=== PATIENT | male | born 1950 | race Caucasian/White ===

== ENCOUNTER 2018-08-06 13:49 | Emergency (ER) | payer MEDICARE ==
[~2018-08-06] VITALS: Ht 182.9 cm; Wt 117.9 kg
[2018-08-06] MEDS ORDERED: HYDROcodone/APAP 5/325MG 1 TAB TABLET PO ONE (16:30)
--- NOTE | 2018-08-06 16:38 | PHYS DOC ---
Past Medical History Past Medical History: Anxiety, Depression Additional Past Medical Histor: PTSD, ENLARGED PROSTATE Past Surgical History: Cholecystectomy Alcohol Use: None Drug Use: None Adult General Chief Complaint Chief Complaint: LOWER EXT PAIN HPI HPI Patient is a 68 year old male who presents to the emergency room with complaints of pain in his right leg that increases with movement and shoots up towards his buttock for the last 2 weeks. Patient states he fell 3 times after slipping on ice on Monday and has had increased pain in the lower portion of his right femur since the fall. Patient states he was seen [facility] earlier today and they x-rayed his low back. The [facility] told him that there is nothing wrong with his back and he prescribed him some vital appearing gel. Patient states that his hip and his leg were not x-rayed. He denies any numbness, tingling, or weakness of the affected extremity. He denies any swelling or erythema. Currently he reports the pain as a 6 out of 10 on the pain scale. He states that nothing alleviates the pain however movement and weightbearing aggravate the pain. Review of Systems Review of Systems Constitutional: Denies fever or chills [] Cardiovascular: No additional information not addressed in HPI [] GI: Denies abdominal pain, saddle anesthesia, nausea, vomiting, or diarrhea [] : Denies dysuria or incontinence Musculoskeletal: Denies back pain, history of present illness Integument: Denies rash or skin lesions [] Neurologic: Denies headache, focal weakness or sensory changes [] Complete systems were reviewed and found to be within normal limits, except as documented in this note. Current Medications Current Medications Current Medications Medications (Trade) Dose Ordered Sig/[facility] Start Time Stop Time Status Last Admin Dose Admin Acetaminophen/ Hydrocodone Bitart (Lortab 5/325) 1 tab 1X ONCE 08/06/18 16:30 08/06/18 16:31 DC 08/06/18 16:32 1 TAB Allergies Allergies Allergies Coded Allergies Type Severity Reaction Last Updated Verified Penicillins Allergy Mild RASH 03/02/16 Yes Physical Exam Physical Exam Constitutional: Well developed, well nourished, no acute distress, non-toxic appearance. [] HENT: Normocephalic, atraumatic, bilateral external ears normal, nose normal. [ ] Eyes: PERRLA, EOMI, conjunctiva normal, no discharge. [] Neck: Normal range of motion, supple, no stridor. [] Cardiovascular:Heart rate regular rhythm, no murmur [] Lungs & Thorax: Bilateral breath sounds clear to auscultation [] Skin: Warm, dry, no erythema, no rash. [] Back: No tenderness Extremities: right lateral lower femur TTP no deformity or crepitus; no cyanosis , no clubbing, increased pain with ROM including straight leg lift of RLE, no edema [] Neurologic: Alert and oriented X 3, normal motor function, normal sensory function, no focal deficits noted. [] Psychologic: Affect normal, judgement normal, mood normal. [] Current Patient Data Vital Signs Vital Signs Date Time Temp Pulse Resp B/P (MAP) Pulse Ox O2 Delivery O2 Flow Rate FiO2 08/06/18 17:30 70 18 166/77 (106) 100 Room Air 08/06/18 15:15 98.6 98.6 EKG EKG [] Radiology/Procedures Radiology/Procedures PROCEDURE: HIP RIGHT 2V WITH PELVIS EXAM: Pelvis and right hip, 3 views; right femur, 2 views. HISTORY: Pain. Fall. COMPARISON: None. FINDINGS: A frontal view the pelvis and frontal and frog-leg views of the right hip and frontal and lateral views of the right femur are obtained. There is no fracture, dislocation or subluxation. There are radiation seed implants within the prostate bed. IMPRESSION: No acute osseous finding. PROCEDURE: RIGHT FEMUR XRAY EXAM: Pelvis and right hip, 3 views; right femur, 2 views. HISTORY: Pain. Fall. COMPARISON: None. FINDINGS: A frontal view the pelvis and frontal and frog-leg views of the right hip and frontal and lateral views of the right femur are obtained. There is no fracture, dislocation or subluxation. There are radiation seed implants within the prostate bed. IMPRESSION: No acute osseous finding. [] Course & Med Decision Making Course & Med Decision Making Pertinent Labs and Imaging studies reviewed. (See chart for details) Dx: R leg pain Xray negative for acute findings. Pt reports some relief with lortab. Advised pt that his sx are similar to sciatic nerve pain. Xrays were negative. Prescription for orphenadrine bid, continue taking ibuprofen 800 TID as reported, follow up with Dr. Heredia if sx persist and for further evaluation Patient verbalized an understanding of home care, medications, follow-up, and return to ED instructions and was in agreement with the plan of care. [] Dragon Disclaimer Dragon Disclaimer This electronic medical record was generated, in whole or in part, using a voice recognition dictation system. Departure Departure Impression: Primary Impression: Right leg pain Additional Impression: Pain in lateral right lower extremity Disposition: HOME, SELF-CARE Condition: STABLE Referrals: UNKNOWN PCP NAME (PCP) Patient Instructions: Hip Pain Additional Instructions: Fill prescription and use as directed for pain. Follow up with your primary care doctor or Dr. Heredia for further evaluation and treatment. Scripts Orphenadrine Citrate (ORPHENADRINE CITRATE) 100 Mg Tablet.er 1 TAB PO BID PRN for PAIN for 10 Days, #20 TAB 0 Refills Prov: RAHEEM PRITCHETT APRN 08/06/18 Problem Qualifiers RAHEEM PRITCHETT APRN Aug 06, 2018 16:38
[2018-08-06 17:30] VITALS: BP 166/77
--- NOTE | 2018-08-06 17:47 | RAD ---
EXAM: Pelvis and right hip, 3 views; right femur, 2 views. HISTORY: Pain. Fall. COMPARISON: None. FINDINGS: A frontal view the pelvis and frontal and frog-leg views of the right hip and frontal and lateral views of the right femur are obtained. There is no fracture, dislocation or subluxation. There are radiation seed implants within the prostate bed. IMPRESSION: No acute osseous finding. Electronically signed by: Vilma Johnson MD (08/06/2018 5:43 PM) [id number]
--- NOTE | 2018-08-06 17:48 | RAD ---
EXAM: Pelvis and right hip, 3 views; right femur, 2 views. HISTORY: Pain. Fall. COMPARISON: None. FINDINGS: A frontal view the pelvis and frontal and frog-leg views of the right hip and frontal and lateral views of the right femur are obtained. There is no fracture, dislocation or subluxation. There are radiation seed implants within the prostate bed. IMPRESSION: No acute osseous finding. Electronically signed by: Vilma Johnson MD (08/06/2018 5:43 PM) [id number]
[2018-08-06] MEDS ORDERED: ORPH100T PO (17:56)
== END 2018-08-06 18:12 | disposition home or self-care (01) ==
LOC: ER 13:49
DX: M79.604 Pain in right leg (principal); M25.551 Pain in right hip; F41.9 Anxiety disorder, unspecified; F32.9 Major depressive disorder, single episode, unspecified; Z90.49 Acquired absence of other specified parts of digestive tract; Z88.0 Allergy status to penicillin; W00.0XXA Fall on same level due to ice and snow, initial encounter; Y93.89 Activity, other specified; Y92.89 Other specified places as the place of occurrence of the external cause; Y99.8 Other external cause status
CPT/HCPCS: 73502; 73552; 99283

== ENCOUNTER → 2019-02-12 | Outpatient (CLI) | payer OTHER ==
[~2019-02-12] MED LIST: BARIUM SULFATE 40% (APPLE) 148 GM PWD. PO ONE; ORPH100T PO
--- NOTE | 2019-02-12 14:10 | RAD ---
Indication: Dysphagia TECHNIQUE: Fluoroscopy guided mediastinal study with total fluoroscopy time of 1.2 seconds and 1 image. COMPARISON: None FINDINGS: Thin liquid, pudding, mixed solid and liquid and solid food consistencies were tested. No Aspiration or penetration. IMPRESSION: As above. Please see detailed notes by speech pathologist in patient's chart for full information. Electronically signed by: Vaughn Apodaca DO (02/12/2019 2:07 PM) [facility]
== END | disposition home or self-care (01) ==
LOC: RAD 12:09
PROVIDERS: ATTEND Nurse Practitioner Family
DX: R13.10 Dysphagia, unspecified (principal)
CPT/HCPCS: 74230; 92611

== ENCOUNTER 2020-11-10 21:11 | Emergency (ER) | payer MEDICARE, OTHER ==
[~2020-11-10] VITALS: Ht 182.9 cm; Wt 120.4 kg
[~2020-11-10 21:11] MED LIST changes: +ACET500T68 PO; +ALLO300T PO; -BARIUM SULFATE 40% (APPLE) 148 GM PWD. PO ONE; +BUSP10TA PO; +CYAN100031 PO; +DOCU-153 PO; +DULO60CA6 PO; +ERGO500027 PO; +FERR325T14 PO; +GABA-585 PO; +GABA-689 PO; +LIPITOR80 MG PO; +METO25TA4 PO; +NITR0.4T24 SL; +OMEG1CAP27 PO; +OMEP20CA16 PO; +OXYB15TA18 PO; +PRAZ5CAP2 PO; +PROP40TA PO; +ROPI3TAB4 PO; +VIT1TABL8 PO
[2020-11-10 21:40] VITALS: BP 153/76
--- NOTE | 2020-11-10 22:13 | PHYS DOC ---
Past Medical History Past Medical History: A-Fib, Anxiety, Depression, GERD, High Cholesterol, Hypertension Additional Past Medical Histor: PTSD, ENLARGED PROSTATE,X 2 HEAD BLEEDS,GOUT Past Surgical History: Cholecystectomy, Knee Replacement, Pacemaker, Other Additional Past Surgical Histo: AICD Smoking Status: Never Smoker Alcohol Use: Occasionally Drug Use: None General Adult EDM: Chief Complaint: LACERATION/AVULSION HPI: HPI: Patient is a 70-year-old male presenting for left thumb injury. Was doing home [employer] project and operating a table saw when he accidentally cut the distal tip of his left finger approximately 6 hours prior to arrival. He applied direct pressure and put a bandage over it and proceeded to go about his day. 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 He has no changes in motor or sensory function, remains neurovascularly intact. There is concern for potential bone involvement of distal left thumb. His pain is well controlled at present. He is not on any blood thinners Review of Systems: Review of Systems: Fourteen body systems of review of systems have been reviewed. See HPI for pertinent positives and negative responses, other humphrey all other systems are negative, non-pertinent or non-contributory Heart Score: C/O Chest Pain: No Risk Factors: Risk Factors: DM, Current or recent (<one month) smoker, HTN, HLP, family history of CAD, obesity. Risk Scores: Score 0 - 3: 2.5% MACE over next 6 weeks - Discharge Home Score 4 - 6: 20.3% MACE over next 6 weeks - Admit for Clinical Observation Score 7 - 10: 72.7% MACE over next 6 weeks - Early Invasive Strategies Allergies: Allergies: Allergies Coded Allergies Type Severity Reaction Last Updated Verified Penicillins Allergy Intermediate RASH 10/01/20 Yes Physical Exam: PE: Constitutional: Well developed, well nourished, no acute distress, non-toxic appearance. HENT: Normocephalic, atraumatic, bilateral external ears normal, oropharynx moist, no oral exudates, nose normal. Eyes: PERRLA, EOMI, conjunctiva normal, no discharge. Neck: Normal range of motion, no tenderness, supple, no stridor. Cardiovascular: Heart rate regular per monitor Lungs & Thorax: No respiratory distress or accessory muscle use, bilateral chest rise Abdomen: Abdomen soft, non-tender, bowel sounds present in all quadrants, no guarding or rebound, nonacute abdomen. Skin: Warm, dry, no erythema, no rash. Back: No tenderness, no CVA tenderness. Extremities: Tenderness present to left distal tip of the thumb with linear laceration present involving distal right-hand tip of nailbed and concern for bony involvement on initial evaluation with cap refill less than 3 seconds in good radial pulse, no cyanosis, no clubbing, ROM intact, no edema. Neurologic: Alert and oriented X 3, normal motor & sensory function, no focal deficits noted. Left upper extremity neurovascularly intact, median, ulnar and radial nerves all intact Psychologic: Affect normal, judgement normal, mood normal. Current Patient Data: Vital Signs: Vital Signs Date Time Temp Pulse Resp B/P (MAP) Pulse Ox O2 Delivery O2 Flow Rate FiO2 11/10/20 21:40 98.5 76 20 153/76 (101) 96 Room Air 98.5 EKG: EKG: [] Radiology/Procedures: Radiology/Procedures: Exam: Left hand 3 views INDICATION: Distal thumb injury TECHNIQUE: Frontal, lateral and oblique views of the left hand Comparisons: None FINDINGS: There is a fracture to the distal tuft of the first digit. Bone mineralization is normal. Joint spaces are well-maintained. Joint spaces are well-maintained. IMPRESSION: Fractures of the distal tuft of the first digit. Electronically signed by: Kassie Hebert MD (11/10/2020 11:02 PM) [facility] Course & Med Decision Making: Course & Med Decision Making VSS> HPI and PE non-conconcerning for emergent/surgical issues. Radiographs obtained and finding of open tuft fracture discussed, tetanus updated, Keflex started for infection prevention. Wound thoroughly irrigated with NS and explored. I reviewed complicated nature of cut from saw blade involving distal tip of finger and nailbed matrix. 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 I advised close PCP follow-up and recommendations for outpatient hand specialist follow-up for evaluation and management as indicated I discussed the risks vs benefits of suture repair and potential role of transfer for immediate hand specialist consultation, patient with full capacity deferred specialist visit to outpatient setting. States he does not care about cosmetic appearance and agrees attempted suture repair would result in more risks than benefits at present. He is amenable to proposed plan of care Strict return precautions discussed with good understanding, all questions and concerns addressed prior to departure Maricel Disclaimer: Maricel Disclaimer: This electronic medical record was generated, in whole or in part, using a voice recognition dictation system. Departure Departure Impression: Primary Impression: Open fracture of tuft of distal phalanx of right thumb Disposition: HOME / SELF CARE / HOMELESS Condition: STABLE Referrals: YISSEL CHAKRABORTY (PCP) Additional Instructions: As discussed prior to ER departure, you were diagnosed with a fracture of the distal tuft of the first digit. There is need for outpatient hand orthopedic surgeon referral, we recommend him typically refer individuals to [facility]. Your is knowledgeable about their orthopedic hand specialist and I would defer to her to navigate your outpatient referral process through your primary care physician. If possible, it is advised that you see them within upcoming 72 yoel rs for repeat evaluation and discussion on further management of your left thumb. You were prescribed antibiotics to prevent secondary infection due to concern that this is an open fracture and high risk for infection. You tolerated the x1 dose of cephalexin antibiotic that was administered while in the ER. Please fill the prescription given and complete this in its entirety based on prescription bottle instructions. You have any questions or concerns that arise prior to outpatient follow-up please do not hesitate to come back for repeat evaluation. It was a pleasure to take care of you and I wish you the best going forward Scripts Cephalexin (CEPHALEXIN) 500 Mg Tablet 2 TAB PO BID for 7 Days, #28 TAB Prov: MINESH GARZON DO 11/11/20 MINESH GARZON DO November 10, 2020 22:13
--- NOTE | 2020-11-10 23:05 | RAD ---
Exam: Left hand 3 views INDICATION: Distal thumb injury TECHNIQUE: Frontal, lateral and oblique views of the left hand Comparisons: None FINDINGS: There is a fracture to the distal tuft of the first digit. Bone mineralization is normal. Joint space s are well-maintained. Joint spaces are well-maintained. IMPRESSION: Fractures of the distal tuft of the first digit. Electronically signed by: Kassie Hebert MD (11/10/2020 11:02 PM) [facility]
[2020-11-11] MEDS ORDERED: LIDOCAINE 2% Multi-Dose 20 ML VIAL. ONE (00:25)
[2020-11-11] MEDS ORDERED: HYDROcodone/APAP 7.5/325MG 1 TAB TABLET ONE (00:26)
[2020-11-11] MEDS: HYDROcodone/APAP 7.5/325MG 1 TAB TABLET PO ONE (00:30)
[2020-11-11] MEDS ORDERED: CEPH500T PO (02:03)
[2020-11-11] MEDS: CEPHALEXIN 250 MG CAPSULE. PO SCH (02:23)
[2020-11-11] MEDS ORDERED: DIPH,PERTUSS(ACELL),TET VAC/PF 0.5 ML SYRINGE. VAX IM ONE ×2 (02:27→02:45)
== END 2020-11-11 02:32 | disposition home or self-care (01) ==
LOC: ER 21:11
DX: S62.521B Displaced fracture of distal phalanx of right thumb, initial encounter for open fracture (principal); I48.91 Unspecified atrial fibrillation; E78.00 Pure hypercholesterolemia, unspecified; I10 Essential (primary) hypertension; F43.10 Post-traumatic stress disorder, unspecified; K21.9 Gastro-esophageal reflux disease without esophagitis; Z95.0 Presence of cardiac pacemaker; M10.9 Gout, unspecified; Z88.0 Allergy status to penicillin; Y28.8XXA Contact with other sharp object, undetermined intent, initial encounter; Y93.89 Activity, other specified; Y92.89 Other specified places as the place of occurrence of the external cause; Y99.8 Other external cause status
CPT/HCPCS: 73130; 99283

== ENCOUNTER 2021-04-06 11:26 | Inpatient (IN) | payer MEDICARE ==
[2021-04-06] VITALS (7 sets, daily range): BP systolic 117–171; BP diastolic 64–114
[~2021-04-06] VITALS: Ht 182.9 cm; Wt 121.6 kg
[~2021-04-06 11:26] MED LIST changes: +CEPH500T PO; +CLINDAMYCIN 900MG PREMIX 50 ML IV PRN; +DOCU-148 PO; -DOCU-153 PO; -DULO60CA6 PO; +DULO60CA7 PO; -ERGO500027 PO; +ERGO500089 PO; +HYDROmorphone 2 MG/ML VIAL IVP PRN; +PROCHLORPERAZINE 10 MG/2 ML VIAL. IVP PRN; +fentaNYL PF VIAL 100 MCG/2 ML VIAL IVP PRN
[2021-04-06] MEDS ORDERED: LIDOCAINE 2% PF 5 ML VIAL. ONE (11:51)
[2021-04-06] MEDS ORDERED: PROPOFOL 10 MG/ML (20ML) VIAL. IV ONE ×2 (11:51→15:18)
[2021-04-06] MEDS ORDERED: ROCURONIUM 50 MG/5 ML VIAL. ONE ×2 (11:51→14:21)
[2021-04-06] MEDS ORDERED: SEVOFLURANE 61 TO 120 MINUTES. IH ONE (11:51)
[2021-04-06] MEDS ORDERED: fentaNYL PF VIAL 100 MCG/2 ML VIAL ONE ×2 (11:52→16:41)
[2021-04-06] MEDS ORDERED: BUPIVACAINE-EPI 0.5%-1:200000 MPF 30 ML VIAL. ONE (12:04)
[2021-04-06] MEDS: IV RINGERS,LACTATED 1000ML 1,000 ML IV SCH ×2 (12:14→17:24)
[2021-04-06] MEDS ORDERED: CHLORHEXIDINE 0.12% 15 ML MOUTHWASH. ONE (13:34)
[2021-04-06] MEDS ORDERED: DEXAMETHASONE SOD PHOS 4 MG/ML VIAL ONE ×2 (13:56→16:03)
[2021-04-06] MEDS ORDERED: LIDOCAINE 1%/EPI 1:100,000 20 ML VIAL. ONE (14:15)
[2021-04-06] MEDS ORDERED: NEOSTIGMINE METHYLSULFATE 5 MG/5 ML SYRINGE. ONE (15:11)
[2021-04-06] MEDS ORDERED: GLYCOPYRROLATE 1 MG/5 ML VIAL. ONE (15:11)
[2021-04-06] MEDS ORDERED: NEOMY/BACITR/POLYMYXIN OINT PACKET. TP ONE ×3 (15:23→15:24)
[2021-04-06] MEDS ORDERED: ePHEDrine PF IN SALINE 50 MG/10 ML SYRINGE. IV ONE ×2 (15:34→15:35)
[2021-04-06] MEDS ORDERED: SEVOFLURANE > 120 MINUTES. IH ONE (15:35)
[2021-04-06] MEDS ORDERED: PHENYLEPHRINE in 0.9% NACL PF 1 MG/10 ML SYRINGE. IV ONE (15:35)
[2021-04-06] MEDS ORDERED: DEXAMETHASONE SOD PHOS 4 MG/ML VIAL IVP ONE ×2 (16:03)
--- NOTE | 2021-04-06 16:26 | PDOC4 ---
OPERATIVE NOTE Date: Date: Apr 06, 2021 Pre-Op Diagnosis: bilateral sublingual sialadenitis Post-Op Diagnosis: same Procedure Performed: excision of bilateral sublingual glands Surgeon: alyssa Anesthesia Type: hapgood Blood Loss: 50 Specimans Obtained: bilateral sublingual glands Findings: see dictation Complications: none noted Operative Note: see dictation CARDDESI DMD Apr 06, 2021 16:25
[2021-04-06] MEDS: fentaNYL PF VIAL 100 MCG/2 ML VIAL IVP PRN ×3 (17:10→21:28)
[2021-04-06] MEDS ORDERED: HYDROcodone/APAP 5/325MG 1 TAB TABLET PO PRN (17:45)
[2021-04-06] MEDS ORDERED: MORPHINE SULFATE 2 MG/ML INJ. ONE (17:49)
[2021-04-06] MEDS: MORPHINE SULFATE 2 MG/ML INJ. IVP PRN ×2 (17:53→18:16)
[2021-04-06] MEDS ORDERED: NITROGLYCERIN SUBLINGUAL 0.4 MG BOTTLE OF 25. SL PRN (18:30)
[2021-04-06] MEDS ORDERED: DOCUSATE SODIUM 100 MG CAPSULE. PO PRN (18:30)
[2021-04-06] MEDS ORDERED: ONDANSETRON PF 4 MG/2 ML VIAL. IVP PRN (18:30)
[2021-04-06] MEDS ORDERED: ALBUTEROL SULFATE 2.5 MG/3 ML NEBU. NEB PRN (18:30)
[2021-04-06] MEDS ORDERED: ACETAMINOPHEN 500 MG TABLET PO PRN (18:30)
--- NOTE | 2021-04-06 18:33 | PDOC1 ---
History and Physical Date of Admission Date of Admission DATE: 04/06/21 TIME: 18:31 Identification/Chief Complaint Chief Complaint Sialodenitis Source Source: Caregiver, Patient History of Present Illness History of Present Illness Mr Michel is a 70 year old male with history of anxiety, PTSD, depression, hypertension, high cholesterol, prostate cancer s/p brachytherapy who presents to outpatient surgery for sialodenitis after recent tooth extraction Seen post-operatively is somewhat hypoxic, concerning for overnight observation post-operatively. Tolerated procedure well. He had tooth extraction over 6 weeks ago and had some intense sublingual pain, was admitted to [facility] for IV antibiotics and steroids and has been on PO antibiotics, but symptoms returned and was admitted for for definitive surgical debridement. Past Medical History Cardiovascular: CAD, HTN, Syncope, Hyperlipidemia, Other Pulmonary: Other CENTRAL NERVOUS SYSTEM: Other GI: GERD, Other Heme/Onc: Anemia NOS Hepatobiliary: No pertinent hx Psych: Depression Musculoskeletal: Osteoarthritis Rheumatologic: Gout Infectious disease: No pertinent hx Renal/: Benign prostatic enlarg. Endocrine: No pertinent hx Past Surgical History Past Surgical History: Pacemaker, Total knee replacement, Other Family History Family History: Hypertension Social History Smoke: No ALCOHOL: none Drugs: None Current Problem List Problem List Problems Medical Problems: (1) Dental injury Status: Acute Current Medications Current Medications Current Medications Fentanyl Citrate (Fentanyl 2ml Vial) 25 mcg PRN Q5MIN PRN IVP MILD PAIN 1-3; Start 04/06/21 at 06:00; Stop 04/06/21 at 20:00 Fentanyl Citrate (Fentanyl 2ml Vial) 50 mcg PRN Q5MIN PRN IVP MODERATE PAIN 4-6 Last administered on 04/06/21at 17:10; Start 04/06/21 at 06:00; Stop 04/06/21 at 20:00 Morphine Sulfate (Morphine Sulfate) 1 mg PRN Q10MIN PRN IVP SEVERE PAIN 7-10 Last administered on 04/06/21at 18:16; Start 04/06/21 at 06:00; Stop 04/06/21 at 20:00 Ringer's Solution 1,000 ml @ 30 mls/hr Q24H IV Last administered on 04/06/21at 17:24; Start 04/06/21 at 06:00; Stop 04/06/21 at 17:59; Status DC Hydromorphone HCl (Dilaudid) 0.5 mg PRN Q10MIN PRN IVP SEVERE PAIN 7-10, 2nd CHOICE; Start 04/06/21 at 06:00; Stop 04/06/21 at 18:15; Status DC Prochlorperazine Edisylate (Compazine) 5 mg PACU PRN PRN IVP NAUSEA, MRX1; Start 04/06/21 at 06:00; Stop 04/06/21 at 20:00 Clindamycin Phosphate 50 ml @ 100 mls/hr 1X PREOP PRN IV PRIOR TO PROCEDURE; Start 04/06/21 at 06:00; Stop 04/06/21 at 18:00; Status DC Propofol (Diprivan) 200 mg STK-MED ONCE IV ; Start 04/06/21 at 11:51; Stop 04/06/21 at 11:52; Status DC Lidocaine HCl (Lidocaine Pf 2% Vial) 5 ml STK-MED ONCE .ROUTE ; Start 04/06/21 at 11:51; Stop 04/06/21 at 11:52; Status DC Sevoflurane (Ultane) 60 ml STK-MED ONCE IH ; Start 04/06/21 at 11:51; Stop 04/06/21 at 11:52; Status DC Rocuronium [employer] (Zemuron) 50 mg STK-MED ONCE .ROUTE ; Start 04/06/21 at 11:51; Stop 04/06/21 at 11:52; Status DC Fentanyl Citrate (Fentanyl 2ml Vial) 100 mcg STK-MED ONCE .ROUTE ; Start 04/06/21 at 11:52; Stop 04/06/21 at 11:52; Status DC Bupivacaine HCl/ Epinephrine Bitart (Sensorcain-Epi 0.5%-1:[id number] Mpf) 30 ml STK-MED ONCE .ROUTE Last administered on 04/06/21at 13:40; Start 04/06/21 at 12:04; Stop 04/06/21 at 12:05; Status DC Chlorhexidine Gluconate (Peridex) 15 ml STK-MED ONCE .ROUTE Last administered on 04/06/21at 13:40; Start 04/06/21 at 13:34; Stop 04/06/21 at 13:34; Status DC Dexamethasone Sodium Phosphate (Decadron) 4 mg STK-MED ONCE .ROUTE ; Start 04/06/21 at 13:56; Stop 04/06/21 at 13:56; Status DC Lidocaine/ Epinephrine (LIDOCAINE 1%-EPI 1:100,000 Multi-Dose) 20 ml STK-MED ONCE .ROUTE Last administered on 04/06/21at 14:25; Start 04/06/21 at 14:15; Stop 04/06/21 at 14:15; Status DC Rocuronium [employer] (Zemuron) 50 mg STK-MED ONCE .ROUTE ; Start 04/06/21 at 14:21; Stop 04/06/21 at 14:21; Status DC Neostigmine [employer] (Neostigmine Methylsulfate) 5 mg STK-MED ONCE .ROUTE ; Start 04/06/21 at 15:11; Stop 04/06/21 at 15:11; Status DC Glycopyrrolate (Robinul) 1 mg STK-MED ONCE .ROUTE ; Start 04/06/21 at 15:11; Stop 04/06/21 at 15:12; Status DC Propofol (Diprivan) 200 mg STK-MED ONCE IV ; Start 04/06/21 at 15:18; Stop 04/06/21 at 15:19; Status DC Neomycin/ Polymyxin/ Bacitracin (Triple Antibiotic Ointment) 1 pkt STK-MED ONCE TP Last administered on 04/06/21at 15:40; Start 04/06/21 at 15:23; Stop 04/06/21 at 15:24; Status DC Neomycin/ Polymyxin/ Bacitracin (Triple Antibiotic Ointment) 1 pkt STK-MED ONCE TP Last administered on 04/06/21at 15:40; Start 04/06/21 at 15:23; Stop 04/06/21 at 15:24; Status DC Neomycin/ Polymyxin/ Bacitracin (Triple Antibiotic Ointment) 1 pkt STK-MED ONCE TP ; Start 04/06/21 at 15:24; Stop 04/06/21 at 15:24; Status DC Ephedrine Sulfate (ePHEDrine PF IN SALINE SYRINGE) 50 mg STK-MED ONCE IV ; Start 04/06/21 at 15:34; Stop 04/06/21 at 15:34; Status DC Phenylephrine HCl (PHENYLEPHRINE in 0.9% NACL PF) 1 mg STK-MED ONCE IV ; Start 04/06/21 at 15:35; Stop 04/06/21 at 15:35; Status DC Ephedrine Sulfate (ePHEDrine PF IN SALINE SYRINGE) 50 mg STK-MED ONCE IV ; Start 04/06/21 at 15:35; Stop 04/06/21 at 15:35; Status DC Sevoflurane (Ultane) 90 ml STK-MED ONCE IH ; Start 04/06/21 at 15:35; Stop 04/06/21 at 15:35; Status DC Dexamethasone Sodium Phosphate (Decadron) 4 mg STK-MED ONCE .ROUTE ; Start 04/06/21 at 16:03; Stop 04/06/21 at 16:03; Status DC Dexamethasone Sodium Phosphate (Decadron) 4 mg STK-MED ONCE IVP Last administered on 04/06/21at 16:03; Start 04/06/21 at 16:03; Stop 04/06/21 at 16:11; Status DC Dexamethasone Sodium Phosphate (Decadron) 4 mg STK-MED ONCE IVP Last administered on 04/06/21at 16:03; Start 04/06/21 at 16:03; Stop 04/06/21 at 16:11; Status DC Fentanyl Citrate (Fentanyl 2ml Vial) 100 mcg STK-MED ONCE .ROUTE ; Start 04/06/21 at 16:41; Stop 04/06/21 at 16:41; Status DC Acetaminophen/ Hydrocodone Bitart (Lortab 5/325) 1 tab PRN Q4HRS PRN PO MILD PAIN 1-3; Start 04/06/21 at 17:45 Acetaminophen/ Hydrocodone Bitart (Lortab 5/325) 2 tab PRN Q4HRS PRN PO MODERATE PAIN, SEVERE PAIN; Start 04/06/21 at 17:45 Morphine Sulfate (Morphine Sulfate) 2 mg STK-MED ONCE .ROUTE ; Start 04/06/21 at 17:49; Stop 04/06/21 at 17:49; Status DC Active Scripts Active Cephalexin 500 Mg Tablet 2 Tab PO BID 7 Days Metoprolol Tartrate 25 Mg Tablet 25 Mg PO BID 30 Days Dok (Docusate Sodium) 100 Mg Capsule 100 Mg PO PRN DAILY PRN 30 Days Nitrostat (Nitroglycerin) 0.4 Mg Tab.subl 0.4 Mg SL PRN Q5MIN PRN 30 Days Reported I-Candice Tablet (Vit A,C & E/Lutein/Minerals) 1 Each Tablet 1 Each PO BID Vitamin D2 (Ergocalciferol (Vitamin D2)) 1,250 Mcg Capsule 1,250 Mcg PO QM Prazosin Hcl 5 Mg Capsule 2 Cap PO QHS Fish Oil 1,000 Mg Softgel ([place]-3 Fatty Acids/Fish Oil) 1 Each Capsule 2 Cap PO TID 30 Days WITH MEALS Ropinirole Hcl 3 Mg Tablet 3 Mg PO HS Oxybutynin Chloride Er (Oxybutynin Chloride) 15 Mg Tab.er.24 1 Tab PO HS Omeprazole 20 Mg Capsule.dr 1 Cap PO DAILY Gabapentin (Gabapentin) 100 Mg Capsule 200 Mg PO DAILY Gabapentin (Gabapentin) 400 Mg Capsule 400 Mg PO HS Ferrous Sulfate 325 Mg Tablet 1 Tab PO DAILY Cymbalta (Duloxetine Hcl) 60 Mg Capsule.dr 1 Cap PO BID B-12 (Cyanocobalamin (Vitamin B-12)) 1,000 Mcg Tablet.er 1 Tab PO DAILY 30 Days Buspirone Hcl 10 Mg Tablet 1 Tab PO BID Lipitor (Atorvastatin Calcium) 80 Mg Tablet 80 Mg PO HS Allopurinol 300 Mg Tablet 1 Tab PO DAILY Acetaminophen 500 Mg Tablet 2 Tab PO PRN Q6HRS PRN 15 Days Allergies Allergies: Coded Allergies: Penicillins (Verified Allergy, Intermediate, RASH, 04/06/21) hydromorphone (Verified Allergy, Intermediate, hallucinations, 04/06/21) tramadol (Verified Adverse Reaction, Intermediate, 04/06/21) SIEZURES ROS General: YES: Fatigue, Malaise, Appetite; No: Chills, Night Sweats, Other PSYCHOLOGICAL ROS: No: Anxiety, Behavioral Disorder, Concentration difficultie, Decreased libido, Depression, Disorientation, Hallucinations, Hostility, Irritab lity, Memory difficulties, Mood Swings, Obsessive thoughts, Physical abuse, Sexual abuse, Sleep disturbances, Suicidal ideation, Other Eyes: No Blurry vision, No Decreased vision, No Double vision, No Dry eyes, No Excessive tearing, No Eye Pain, No Itchy Eyes, No Loss of vision, No Photophobia, No Scotomata, No Uses contacts, No Uses glasses, No Other HEENT: No: Heacaches, Visual Changes, Hearing change, Nasal congestion, Nasal discharge, Oral lesions, Sinus pain, Sore Throat, Epistaxis, Sneezing, Snoring, Tinnitus, Vertigo, Vocal changes, Other ALLERGY AND IMMUNOLOGY: No: Hives, Insect Bite Sensitivity, Itchy/Watery Eyes, Nasal Congestion, Post Nasal Drip, Seasonal Allergies, Other Hematological and Lymphatic: No: Bleeding Problems, Blood Clots, Blood Transfusions, Brusing, Night Sweats, Pallor, Swollen Lymph Nodes, Other ENDOCRINE: No: Breast Changes, Galactorrhea, Hair Pattern Changes, Hot Flashes, Malaise/lethargy, Mood Swings, Palpitations, Polydipsia/polyuria, Skin Changes, Temperature Intolerance, Unexpected Weight Changes, Other Breast: No New/Changing Breast Lumps, No Nipple changes, No Nipple discharge, No Other Respiratory: No: Cough, Hemoptysis, Orthopnea, Pleuritic Pain, Shortness of breath, SOB with excertion, Sputum Changes, Stridor, Tachypnea, Wheezing, Other Cardiovascular: No Chest Pain, No Palpitations, No Orthopnea, No Paroxysmal Noc. Dyspnea, No Edema, No Lt Headedness, No Other Gastrointestinal: No Nausea, No Vomiting, No Abdominal Pain, No Diarrhea, No Constipation, No Melena, No Hematochezia, No Other Genitourinary: No Dysuria, No Frequency, No Incontinence, No Hematuria, No Retention, No Discharge, No Urgency, No Pain, No Flank Pain, No Other, No , No , No , No , No , No , No Musculoskeletal: No Gait Disturbance, No Joint Pain, No Joint Stiffness, No Joint Swelling, No Muscle Pain, No Muscular Weakness, No Pain In:, No Swelling In:, No Other Neurological: No Behavorial Changes, No Bowel/Bladder ControlChng, No Confusion, No Dizziness, No Gait Disturbance, No Headaches, No Impaired Coord/balance, No Memory Loss, No Numbness/Tingling, No Seizures, No Speech Problems, No Tremors, No Visual Changes, No Weakness, No Other Skin: No Dry Skin, No Eczema, No Hair Changes, No Lumps, No Mole Changes, No Mottling, No Nail Changes, No Pruritus, No Rash, No Skin Lesion Changes, No Other, No Acne Physical Exam General: Alert, Oriented X3, Cooperative, moderate distress HEENT: PERRLA, EOMI, Other (Adentulous, bilateral sublingual drains noted) Lungs: Other (Bibiasilar crackles, wheezing) Heart: S1S2, RRR, no thrills, no rubs Abdomen: Normal bowel sounds, Soft, No tenderness, No hepatosplenomegaly, No masses Extremities: No clubbing, No cyanosis, No edema, Normal pulses, No tenderness/swelling Skin: No rashes, No breakdown, No significant lesion Neuro: Normal gait, Normal speech, Strength at 5/5 X4 ext, Normal tone, Sensation intact, Cranial nerves 3-12 NL, Reflexes 2+ Psych/Mental Status: Mental status NL, Mood NL Vitals Vitals Vital Signs Date Time Temp Pulse Resp B/P (MAP) Pulse Ox O2 Delivery O2 Flow Rate FiO2 04/06/21 18:16 20 93 Nasal Cannula 2.0 04/06/21 18:14 100.3 92 172/86 100.3 VTE Prophylaxis Ordered VTE Prophylaxis Devices: Yes VTE Pharmacological Prophylaxi: Yes Assessment/Plan Assessment/Plan A/P: Sialodenitis - continue IV antibiotics. f/u operative cultures, IV and PO pain control Hypoxia - has underlying COPD, will give nebulizers. Check CXR SSS s/p PPM implantation (Biotronik) 10/01/20 PSVT - maintaining SR MPI 06/10/20 without ischemia. Echo 10/01 with preserved LV systolic function RONEN - noncompliant with CPAP, has not worn since surgery Hx of SDH from fall - S/P moreno hole on left MMA embolization in 2019. CT stable currently HTN - controlled Urinary incontinence - recently placed on Ditropan. He does take prazosin. He had follow-up with the [facility] and had urodynamics in 2019 and tells me they were "normal". He does suffer from erectile dysfunction after his brachytherapy. PTSD with anxiety and depression - cont home meds FEN - Full liquid diet PPX - scds FULL CODE Dispo - inpatient for above monitoring Justifications for Admission Other Justification near syncope RYAN HAMMER MD Apr 06, 2021 18:33
[2021-04-06] MEDS: HYDROcodone/APAP 5/325MG 1 TAB TABLET PO PRN (20:26)
[2021-04-06] MEDS: rOPINIRole 1 MG TABLET. PO SCH (20:27)
[2021-04-06] MEDS: ATORVASTATIN CALCIUM 40 MG TABLET. PO SCH (20:27)
[2021-04-06] MEDS: busPIRone 10 MG TABLET. PO SCH (20:27)
[2021-04-06] MEDS: GABAPENTIN 400 MG CAPSULE. PO SCH (20:27)
[2021-04-06] MEDS: DULoxetine HCL 30 MG CAPSULE.DR PO SCH (20:28)
[2021-04-06] MEDS: MULTIVITAMIN I-VITE TABLET. PO SCH (20:28)
[2021-04-06] MEDS: METOPROLOL TART IMMED RELEASE 25 MG TABLET. PO SCH (20:31)
[2021-04-06] MEDS: PRAZOSIN 1 MG CAPSULE. PO SCH (20:36)
[2021-04-06] MEDS: CLINDAMYCIN 600MG PREMIX 50 ML IV SCH (20:55)
--- NOTE | 2021-04-06 21:30 | OP ---
DATE OF SURGERY: 04/06/2021 OPERATING SERVICE: Oral maxillofacial surgery. ATTENDING PHYSICIAN: Damian Licea DMD, MD PREOPERATIVE DIAGNOSIS: Sublingual sialadenitis. POSTOPERATIVE DIAGNOSIS: Sublingual sialadenitis. PROCEDURE PERFORMED: Sublingual excision with biopsy and placement of drains. DIAGNOSES: 1. Chronic obstructive pulmonary disease. 2. Coronary artery disease. 3. Hypertension. 4. Obesity. 5. Obstructive sleep apnea. 6. Posttraumatic stress disorder. 7. Anxiety. 8. Depression. 9. Sublingual salivary gland sialadenitis. BRIEF HISTORY: The patient is a 71-year-old man referred to my clinic by the MD and [facility] for extraction of nonrestorable teeth. These teeth were removed approximately 6 weeks ago. Approximately 2 weeks or 4 weeks postoperatively, he was feeling well until he had intense pain in the floor of mouth bilaterally. He reported to my clinic for a postoperative evaluation. The extraction sites were healing within normal limits. Tissue was pink and healthy. He had a tenderness at the anterior floor of the mouth. This is noted potentially could be cellulitic, but it could be postoperative infection or potentially abscess and needed drainage. We initiated p.o. antibiotics managed as outpatient initially with potential for inpatient therapy is warranted. Approximately 48 or 72 hours following the initiation of p.o. antibiotics and he had worsening pain and elevation of floor of mouth. He was taken to [facility] on the [place] for scan and evaluation. He noted to have elevation of floor of mouth and tenderness of floor of mouth. Skin revealed no fluid collection. Rather, the scan demonstrated a diffuse cellulitic look of the anterior floor of the mouth and the sublingual gland area. On exam, he had patent, clear submandibular ducts producing clear saliva bilaterally. Did not appear to represent a submandibular sialadenitis nor a parotid sialadenitis. This appeared to be localizing to the floor of the mouth. We initiated p.o., IV antibiotics, IV hydration with sour candy, massive oral hydration, oral protein and so few doses of Decadron. Rapidly, he improved to demonstrate a return near to normal. The IV antibiotics and all other therapeutic modalities were continued; however, the Decadron was stopped within 24 hours. The elevation of the floor of mouth had returned. He was able to be decompressed manually with assistance from the oral surgery service and aspiration revealed no fluid collection rather the diffuse serous salivary infiltrated into the floor of the mouth. He did have continued elevation of the floor of the mouth and end of the tongue. Concern for airway embarrassment was noted and Decadron was resumed. With addition of Decadron and IV antibiotics, the patient's saturation did improve. Over the next few days, ultimately well enough to discharge home on p.o. antibiotics to be resumed at home. The consensus was this was a sublingual sialadenitis that was bilateral, discussed the risks, alternatives, and benefits with the patient for sublingual gland excision and biopsy. The patient was amenable with our plan and elected to proceed with surgery. A permit was obtained, H and P was performed in our clinic and the surgery was scheduled for [facility]. ESTIMATED BLOOD LOSS: Approximately 50 mL. DRAINS PLACED: Two drains, lower right, lower left sublingual area. COMPLICATIONS: None noted at the time of surgery. SPECIMEN SENT: He had a sublingual gland excision, both right and left sides were sent and marked anterior to his right and left sides. After the history and physical was updated in the preoperative holding area, the patient was transported by the anesthesia service to the operating suite, placed in the supine position. General anesthesia was induced. The patient was then intubated with an oral intubation without complication. The tube was secured to the upper left hand side. A timeout was initiated by surgical staff and all perioperative staff was in agreement. The patient was then seatbelted with all pressure points padded and double checked. The patient was then prepped and draped in normal sterile fashion. Surgery began with placement of a moistened throat pack. Oral cavity was then lavaged with Peridex mouthwash and suctioned. Local anesthesia in the form of 0.5% bupivacaine with 1:200,000 epinephrine was administered in the proposed surgical areas as blocks. A total of 30 mL of local anesthesia was administered. During the procedure, an additional 10+10 mL of 1% lidocaine with 1:100,000 epinephrine were administered with the final 10 mLs being administered at the end of the procedure. This was a total of 20 mL of 1% lidocaine, 1:100,000 epinephrine. The surgery began with attempting to cannulate the bilateral submandibular ducts with the set provided by the hospital. This was unable to be cannulated, noting the stenosis of the ducts. An additional set was brought and submitted for sterilization. While I was sterilizing the mid crestal ridge, incision was performed on the lingual. A full-thickness mucoperiosteal flap was reflected to demonstrate that this was not an osteomyelitis or an infectious process that was being source from the mandible. The bone appeared to be well healed and healthy and have no purulence. This tissue was then resuspended with running chromic gut sutures in a running locked fashion, lower right and lower left quadrants. The procedure resumed with lower left side with a fresh 15 blade and an incision approximately 4 mm lingual to the lower left mandibular lingual ridge. This was a mucosal incision only. A blunt dissection was taken down through the floor of mouth into the gland. The gland was then identified and elevated. The anterior and inferior portions of the gland were identified first and then subsequently the distal and then the proximal ends. The submandibular duct and the lingual nerves and these structures were then also identified. They were protected and the sublingual gland was removed with blunt dissection without complication. There was stenosis and scarring at the ductal portion of the sublingual gland. This was also noted on the lower right side as well. Once the sublingual gland was removed, the area was lavaged and suctioned. A drain was placed and the mucosa was sewn approximately usp closed with interrupted and running locked suture. The lower right floor of mouth was addressed in a similar fashion. The lacrimal probes were produced as a second set and the lower right sublingual gland was cannulated to the time successfully. This assisted as the floor of mouth incision was made approximately 4 mm lingual to the dentoalveolar ridge on the lower right mandible. At this time, blunt dissection was taken through the floor of the mouth, through the sublingual gland. It was dissected in a similar fashion both first inferiorly and then distally and proximally identifying the sublingual duct and lingual nerve structures and protecting the structures as the sublingual gland was ultimately excised. As noted previously, there was scarring in the area of the ductal portion of the sublingual gland. Once these ducts were removed, the sites were revised, irrigated, lavaged, suctioned and observed. A submandibular drain was placed in the sublingual area and the wound was closed approximately usp to two-thirds with running locked 3-0 chromic gut sutures and also interrupted sutures. The Emmanuel drains were secured with 2 single 3-0 silk sutures. This completed in the culmination of the procedure. The final local was administered at this time. The oral cavity was lavaged and suctioned. The moistened throat pack was removed. An OG was placed and the stomach was decompressed. The patient was then returned to the care of anesthesia where he was awakened and extubated without complication and transported to the PACU in a stable condition. FAITH DR: Alli TID: [id number] [facility]
[2021-04-06] MEDS ORDERED: guaiFENesin DM 200MG/20MG 10 ML SYRUP PO PRN (22:15)
[2021-04-07] MEDS: HYDROcodone/APAP 5/325MG 1 TAB TABLET PO PRN ×3 (00:37→18:35)
[2021-04-07 03:10] VITALS: BP 94/44
--- NOTE | 2021-04-07 03:50 | RAD ---
XR CHEST 1V History: Reason: Insertion of pacemaker / Spl. Instructions: / History: Comparison: October 07, 2020 Findings: Mild left basilar linear atelectasis. No consolidation or pleural effusion. Normal heart size. No pne umothorax. Unchanged left-sided pacemaker. Impression: 1. Mild left basilar linear atelectasis. Electronically signed by: Rufino Urbano DO (04/07/2021 3:47 AM) [facility]
[2021-04-07] MEDS: PANTOPRAZOLE 40 MG TABLET.DR. PO SCH (06:08)
[2021-04-07] MEDS: fentaNYL PF VIAL 100 MCG/2 ML VIAL IVP PRN ×3 (06:16→21:59)
--- NOTE | 2021-04-07 06:54 | PDOC ---
[employer] PROGRESS NOTE Date of Service DOS: DATE: 04/07/21 TIME: 06:53 Chief Complaint Chief Complaint A/P: Sialodenitis - continue IV antibiotics. f/u operative cultures, IV and PO pain control Hypoxia - has underlying COPD, will give nebulizers. Check CXR SSS s/p PPM implantation (Biotronik) 10/01/20 PSVT - maintaining SR MPI 06/10/20 without ischemia. Echo 10/01 with preserved LV systolic function RONEN - noncompliant with CPAP, has not worn since surgery Hx of SDH from fall - S/P moreno hole on left MMA embolization in 2019. CT stable currently HTN - controlled Urinary incontinence - recently placed on Ditropan. He does take prazosin. He had follow-up with the [facility] and had urodynamics in 2019 and tells me they were "normal". He does suffer from erectile dysfunction after his brachytherapy. PTSD with anxiety and depression - cont home meds FEN - Full liquid diet PPX - scds FULL CODE Dispo - inpatient for above monitoring History of Present Illness History of Present Illness Mr Michel is a 70 year old male with history of anxiety, PTSD, depression, hypertension, high cholesterol, prostate cancer s/p brachytherapy who presents to outpatient surgery for sialodenitis after recent tooth extraction Seen post-operatively is somewhat hypoxic, concerning for overnight observation post-operatively. Tolerated procedure well. He had tooth extraction over 6 weeks ago and had some intense sublingual pain, was admitted to [facility] for IV antibiotics and steroids and has been on PO antibiotics, but symptoms returned and was admitted for for definitive surgical debridement. Slept overnight on O2. Chest radiograph with no acute findings minimal left basilar atelectasis changes. Only coughing on laying flat. Asking to advance diet further and go home. Vitals/I&O Vitals/I&O: Vital Signs Date Time Temp Pulse Resp B/P (MAP) Pulse Ox O2 Delivery O2 Flow Rate FiO2 04/07/21 06:16 18 96 Room Air 04/07/21 05:00 2.0 04/07/21 03:10 97.8 61 94/44 (61) 97.8 I & O 04/06/21 04/06/21 04/07/21 15:00 23:00 07:00 Intake Total 1770 ml Output Total 50 ml Balance 1720 ml Physical Exam General: Alert, Oriented X3, Cooperative, moderate distress Lungs: Clear Abdomen: Normal bowel sounds, Soft, No tenderness, No hepatosplenomegaly, No masses Extremities: No clubbing, No cyanosis, No edema, Normal pulses, No tenderness/ swelling Skin: No rashes, No breakdown, No significant lesion Assessment and Plan Assessmemt and Plan Problems Medical Problems: (1) Dental injury Status: Acute Comment Review of Relevant I have reviewed the following items rosmery (where applicable) has been applied. Medications: Current Medications Medications (Trade) Dose Ordered Sig/Shalini Route PRN Reason Start Time Stop Time Status Last Admin Dose Admin Bupivacaine HCl/ Epinephrine Bitart (Sensorcain-Epi 0.5%-1:[id number] Mpf) 30 ml STK-MED ONCE .ROUTE 04/06/21 12:04 04/06/21 12:05 DC 04/06/21 13:40 Chlorhexidine Gluconate (Peridex) 15 ml STK-MED ONCE .ROUTE 04/06/21 13:34 04/06/21 13:34 DC 04/06/21 13:40 Lidocaine/ Epinephrine (LIDOCAINE 1%-EPI 1:100,000 Multi-Dose) 20 ml STK-MED ONCE .ROUTE 04/06/21 14:15 04/06/21 14:15 DC 04/06/21 14:25 Neomycin/ Polymyxin/ Bacitracin (Triple Antibiotic Ointment) 1 pkt STK-MED ONCE TP 04/06/21 15:23 04/06/21 15:24 DC 04/06/21 15:40 Neomycin/ Polymyxin/ Bacitracin (Triple Antibiotic Ointment) 1 pkt STK-MED ONCE TP 04/06/21 15:23 04/06/21 15:24 DC 04/06/21 15:40 Dexamethasone Sodium Phosphate (Decadron) 4 mg STK-MED ONCE IVP 04/06/21 16:03 04/06/21 16:11 DC 04/06/21 16:03 Dexamethasone Sodium Phosphate (Decadron) 4 mg STK-MED ONCE IVP 04/06/21 16:03 04/06/21 16:11 DC 04/06/21 16:03 Acetaminophen/ Hydrocodone Bitart (Lortab 5/325) 2 tab PRN Q4HRS PRN PO MODERATE PAIN, SEVERE PAIN 04/06/21 17:45 04/07/21 00:37 Buspirone HCl (Buspar) 10 mg BID PO 04/06/21 21:00 04/06/21 20:27 Gabapentin (Neurontin) 400 mg HS PO 04/06/21 21:00 04/06/21 20:27 Metoprolol Tartrate (Lopressor) 25 mg BID PO 04/06/21 21:00 04/06/21 20:31 Multivitamins/ Minerals (I-Candice) 1 tab BID PO 04/06/21 21:00 04/06/21 20:28 Atorvastatin Calcium (Lipitor) 80 mg QHS PO 04/06/21 21:00 04/06/21 20:27 Duloxetine HCl (Cymbalta) 60 mg BID PO 04/06/21 21:00 04/06/21 20:28 Pantoprazole Sodium (Protonix) 40 mg DAILYAC PO 04/07/21 07:30 04/07/21 06:08 Prazosin HCl (Minipress) 10 mg QHS PO 04/06/21 21:00 04/06/21 20:36 Ropinirole HCl (Requip) 3 mg HS PO 04/06/21 21:00 04/06/21 20:27 Fentanyl Citrate (Fentanyl 2ml Vial) 25 mcg PRN Q3HRS PRN IVP SEVERE PAIN 7-10 04/06/21 18:30 04/07/21 06:16 Metronidazole 100 ml @ 100 mls/hr Q8HRS IV 04/06/21 19:00 04/07/21 06:08 Clindamycin Phosphate 50 ml @ 100 mls/hr Q8HRS IV 04/06/21 20:00 04/06/21 20:55 Justifications for Admission Other Justification near syncope RYAN HAMMER MD Apr 07, 2021 06:54
[2021-04-07 07:00] VITALS: BP 83/57
[2021-04-07] MEDS: CLINDAMYCIN 600MG PREMIX 50 ML IV SCH ×3 (07:24→23:12)
[2021-04-07 07:30] LABS: BASO % 0 % (0-3); EOS % 0 % (0-3); HEMATOCRIT 37.3 % (39.0-53.0); HEMOGLOBIN 12.3 g/dL (13.0-17.5); LYMPH # 0.8 x10^3/uL (1.0-4.8); LYMPH % 6 % (24-48); MEAN CORPUSCULAR HEMOGLOBIN 30 pg (25-35); MEAN CORPUSCULAR HGB CONC 33 g/dL (31-37); MEAN CORPUSCULAR VOLUME 92 fL (79-100); MONO # 0.6 x10^3/uL (0.0-1.1); MONO % 4 % (0-9); NEUT # 12.9 x10^3/uL (1.8-7.7); NEUT % 90 % (31-73); PLATELET COUNT 257 x10^3/uL (140-400); RED BLOOD COUNT 4.05 x10^6/uL (4.30-5.70); RED CELL DISTRIBUTION WIDTH 13.9 % (11.5-14.5); WHITE BLOOD COUNT 14.3 x10^3/uL (4.0-11.0)
[2021-04-07 07:46] LABS: PROTHROMBIN TIME PATIENT 13.3 SEC (11.7-14.0)
[2021-04-07 08:19] LABS: ALBUMIN 2.9 g/dL (3.4-5.0); ALBUMIN/GLOBULIN RATIO 0.8 (1.0-1.7); CREATININE 0.9 mg/dL (0.7-1.3); GFR 83.2; POTASSIUM 4.6 mmol/L (3.5-5.1); TOTAL BILIRUBIN 0.7 mg/dL (0.2-1.0); TOTAL PROTEIN 6.6 g/dL (6.4-8.2)
[2021-04-07 08:34] LABS: % BANDS 7 % (0-9); % LYMPHS 5 % (24-48); % MONOS 2 % (0-10); % SEGS 86 % (35-66)
[2021-04-07 08:35] LABS: PLT ESTIMATE ADEQUATE (ADEQUATE)
[2021-04-07] MEDS: METOPROLOL TART IMMED RELEASE 25 MG TABLET. PO SCH (09:00)
[2021-04-07] MEDS: FERROUS SULFATE 325 MG TABLET. PO SCH (10:57)
[2021-04-07] MEDS: busPIRone 10 MG TABLET. PO SCH ×2 (10:57→21:47)
[2021-04-07] MEDS: GABAPENTIN 100 MG CAPSULE. PO SCH (10:57)
[2021-04-07] MEDS: MULTIVITAMIN I-VITE TABLET. PO SCH ×2 (10:57→21:47)
[2021-04-07] MEDS: ALLOPURINOL 300 MG TABLET. PO SCH (10:58)
[2021-04-07 11:00] VITALS: BP 92/43
[2021-04-07] MEDS: DULoxetine HCL 30 MG CAPSULE.DR PO SCH ×2 (11:06→21:47)
[2021-04-07] MEDS ORDERED: IV NORMAL SALINE 1000ML BAG 1,000 ML IV ONE (12:30)
[2021-04-07 15:00] VITALS: BP 99/53
[2021-04-07 19:00] VITALS: BP 134/77
[2021-04-07] MEDS: PRAZOSIN 1 MG CAPSULE. PO SCH (21:00)
[2021-04-07] MEDS: GABAPENTIN 400 MG CAPSULE. PO SCH (21:00)
[2021-04-07] MEDS: rOPINIRole 1 MG TABLET. PO SCH (21:48)
[2021-04-07] MEDS: ATORVASTATIN CALCIUM 40 MG TABLET. PO SCH (21:50)
[2021-04-07] MEDS ORDERED: KETOROLAC 15 MG/ML VIAL. IVP PRN (22:15)
[2021-04-07] MEDS: oxyCODONE/APAP 5/325 1 TAB TABLET PO PRN (23:11)
[2021-04-07 23:35] VITALS: BP 137/63
[2021-04-08 03:39] VITALS: BP 130/71
[2021-04-08] MEDS: oxyCODONE/APAP 5/325 1 TAB TABLET PO PRN (05:37)
[2021-04-08] MEDS: CLINDAMYCIN 600MG PREMIX 50 ML IV SCH ×2 (05:38→06:00)
[2021-04-08 07:00] VITALS: BP 117/69
[2021-04-08] MEDS: MULTIVITAMIN I-VITE TABLET. PO SCH (07:58)
[2021-04-08] MEDS: ALLOPURINOL 300 MG TABLET. PO SCH (07:59)
[2021-04-08] MEDS: PANTOPRAZOLE 40 MG TABLET.DR. PO SCH (07:59)
[2021-04-08] MEDS: FERROUS SULFATE 325 MG TABLET. PO SCH (07:59)
[2021-04-08] MEDS: DULoxetine HCL 30 MG CAPSULE.DR PO SCH (07:59)
[2021-04-08] MEDS: busPIRone 10 MG TABLET. PO SCH (08:00)
[2021-04-08] MEDS: GABAPENTIN 100 MG CAPSULE. PO SCH (08:00)
[2021-04-08] MEDS ORDERED: CLIN-94 PO (08:33)
[2021-04-08] MEDS ORDERED: OXYC1TAB15 PO (08:33)
--- NOTE | 2021-04-08 08:36 | PDOC ---
[employer] PROGRESS NOTE Date of Service DOS: DATE: 04/08/21 TIME: 08:34 Chief Complaint Chief Complaint A/P: Sialodenitis - continue IV antibiotics. f/u operative cultures, IV and PO pain control Hypoxia - has underlying COPD, will give nebulizers. Check CXR SSS s/p PPM implantation (Biotronik) 10/01/20 PSVT - maintaining SR MPI 06/10/20 without ischemia. Echo 10/01 with preserved LV systolic function RONEN - noncompliant with CPAP, has not worn since surgery Hx of SDH from fall - S/P moreno hole on left MMA embolization in 2019. CT stable currently HTN - controlled Urinary incontinence - recently placed on Ditropan. He does take prazosin. He had follow-up with the [facility] and had urodynamics in 2019 and tells me they were "normal". He does suffer from erectile dysfunction after his brachytherapy. PTSD with anxiety and depression - cont home meds FEN - Full liquid diet PPX - scds FULL CODE Dispo - inpatient for above monitoring History of Present Illness History of Present Illness Mr Michel is a 70 year old male with history of anxiety, PTSD, depression, hypertension, high cholesterol, prostate cancer s/p brachytherapy who presents to outpatient surgery for sialodenitis after recent tooth extraction Seen post-operatively is somewhat hypoxic, concerning for overnight observation post-operatively. Tolerated procedure well. He had tooth extraction over 6 weeks ago and had some intense sublingual pain, was admitted to [facility] for IV antibiotics and steroids and has been on PO antibiotics, but symptoms returned and was admitted for for definitive surgical debridement. 04/07: Slept overnight on O2. Chest radiograph with no acute findings minimal left basilar atelectasis changes. Only coughing on laying flat. Pain not well controlled requiring IV and increase to 2% Pain better controlled overnight. Afebrile. Asking to advance diet further and go home. Drains draining well. Vitals/I&O Vitals/I&O: Vital Signs Date Time Temp Pulse Resp B/P (MAP) Pulse Ox O2 Delivery O2 Flow Rate FiO2 04/08/21 08:00 Room Air 04/08/21 07:00 97.5 72 20 117/69 (85) 96 97.5 04/08/21 06:07 1.0 I & O 04/07/21 04/07/21 04/08/21 15:00 23:00 07:00 Intake Total 320 ml 520 ml 1170 ml Balance 320 ml 520 ml 1170 ml Physical Exam General: Alert, Oriented X3, Cooperative, moderate distress Lungs: Clear Abdomen: Normal bowel sounds, Soft, No tenderness, No hepatosplenomegaly, No masses Extremities: No clubbing, No cyanosis, No edema, Normal pulses, No te nderness/swelling Skin: No rashes, No breakdown, No significant lesion Assessment and Plan Assessmemt and Plan Problems Medical Problems: (1) Dental injury Status: Acute Comment Review of Relevant I have reviewed the following items rosmery (where applicable) has been applied. Medications: Current Medications Medications (Trade) Dose Ordered Sig/Shalini Route PRN Reason Start Time Stop Time Status Last Admin Dose Admin Allopurinol (Zyloprim) 300 mg DAILY PO 04/07/21 09:00 04/08/21 07:59 Gabapentin (Neurontin) 200 mg DAILY PO 04/07/21 09:00 04/08/21 08:00 Sodium Chloride 1,000 ml @ 1,000 mls/hr 1X ONCE IV 04/07/21 12:30 04/07/21 13:29 DC 04/07/21 14:05 Oxycodone/ Acetaminophen (Percocet 5/325) 2 tab PRN Q4HRS PRN PO PAIN MODERATE/SEVERE 04/07/21 22:15 04/08/21 05:37 Ketorolac Tromethamine (Toradol 15mg Vial) 15 mg PRN Q6HRS PRN IVP INFLAMMATION 04/07/21 22:15 04/12/21 22:14 04/07/21 23:12 Justifications for Admission Other Justification near syncope RYAN HAMMER MD Apr 08, 2021 08:36
--- NOTE | 2021-04-08 08:38 | PDOC3 ---
Discharge Summary Visit Information Date of Admission: Apr 06, 2021 Date of Discharge: Apr 08, 2021 Admitting Diagnosis: Sialodenitis Final Diagnosis Problems Medical Problems: (1) Dental injury Status: Acute Brief Hospital Course Allergies Allergies Coded Allergies Type Severity Reaction Last Updated Verified Penicillins Allergy Intermediate RASH 04/06/21 Yes hydromorphone Adverse Reaction Intermediate hallucinations 04/08/21 Yes tramadol Adverse Reaction Intermediate 04/07/21 Yes Vital Signs Vital Signs Date Time Temp Pulse Resp B/P (MAP) Pulse Ox O2 Delivery O2 Flow Rate FiO2 04/08/21 08:00 Room Air 04/08/21 07:00 97.5 72 20 117/69 (85) 96 97.5 04/08/21 06:07 1.0 Lab Results Laboratory Tests Test 04/07/21 06:00 White Blood Count 14.3 x10^3/uL (4.0-11.0) Red Blood Count 4.05 x10^6/uL (4.30-5.70) Hemoglobin 12.3 g/dL (13.0-17.5) Hematocrit 37.3 % (39.0-53.0) Mean Corpuscular Volume 92 fL (79-100) Mean Corpuscular Hemoglobin 30 pg (25-35) Mean Corpuscular Hemoglobin Concent 33 g/dL (31-37) Red Cell Distribution Width 13.9 % (11.5-14.5) Platelet Count 257 x10^3/uL (140-400) Neutrophils (%) (Auto) 90 % (31-73) Lymphocytes (%) (Auto) 6 % (24-48) Monocytes (%) (Auto) 4 % (0-9) Eosinophils (%) (Auto) 0 % (0-3) Basophils (%) (Auto) 0 % (0-3) Neutrophils # (Auto) 12.9 x10^3/uL (1.8-7.7) Lymphocytes # (Auto) 0.8 x10^3/uL (1.0-4.8) Monocytes # (Auto) 0.6 x10^3/uL (0.0-1.1) Eosinophils # (Auto) 0.0 x10^3/uL (0.0-0.7) Basophils # (Auto) 0.0 x10^3/uL (0.0-0.2) Segmented Neutrophils % 86 % (35-66) Band Neutrophils % 7 % (0-9) Lymphocytes % 5 % (24-48) Monocytes % 2 % (0-10) Platelet Estimate Adequate (ADEQUATE) Prothrombin Time 13.3 SEC (11.7-14.0) Prothromb Time International Ratio 1.0 (0.8-1.1) Sodium Level 136 mmol/L (136-145) Potassium Level 4.6 mmol/L (3.5-5.1) Chloride Level 100 mmol/L (98-107) Carbon Dioxide Level 29 mmol/L (21-32) Anion Gap 7 (6-14) Blood Urea Nitrogen 23 mg/dL (8-26) Creatinine 0.9 mg/dL (0.7-1.3) Estimated GFR (Cockcroft-Gault) 83.2 BUN/Creatinine Ratio 26 (6-20) Glucose Level 121 mg/dL (70-99) Calcium Level 8.0 mg/dL (8.5-10.1) Total Bilirubin 0.7 mg/dL (0.2-1.0) Aspartate Amino Transf (AST/SGOT) 70 U/L (15-37) Alanine Aminotransferase (ALT/SGPT) 77 U/L (16-63) Alkaline Phosphatase 86 U/L (46-116) Total Protein 6.6 g/dL (6.4-8.2) Albumin 2.9 g/dL (3.4-5.0) Albumin/Globulin Ratio 0.8 (1.0-1.7) Brief Hospital Course Mr Michel is a 70 year old male with history of anxiety, PTSD, depression, hypertension, high cholesterol, prostate cancer s/p brachytherapy who presents to outpatient surgery for sialodenitis after recent tooth extraction Seen post-operatively is somewhat hypoxic, concerning for overnight observation post-operatively. Tolerated procedure well. He had tooth extraction over 6 weeks ago and had some intense sublingual pain, was admitted to [facility] for IV antibiotics and steroids and has been on PO antibiotics, but symptoms returned and was admitted for for definitive surgical debridement. 04/07: Slept overnight on O2. Chest radiograph with no acute findings minimal left basilar atelectasis changes. Only coughing on laying flat. Pain not well controlled requiring IV and increase to 2% Day of discharge. Pain better controlled overnight. Afebrile. Asking to advance diet further and go home. Drains draining well. Home on Percocet for pain limited course and clindamycin will follow through the [facility] and follow-up with oral maxilla surgery on 04/09/2020 Problem list: Sialodenitis - cont 7 days antibiotics. f/u operative cultures, IV and PO pain control Hypoxia - has underlying COPD, will give nebulizers. Check CXR SSS s/p PPM implantation (Biotronik) 10/01/20 PSVT - maintaining SR MPI 06/10/20 without ischemia. Echo 10/01 with preserved LV systolic function RONEN - noncompliant with CPAP, has not worn since surgery Hx of SDH from fall - S/P moreon hole on left MMA embolization in 2019. CT stable currently HTN - controlled Urinary incontinence - recently placed on Ditropan. He does take prazosin. He had follow-up with the [facility] and had urodynamics in 2018 and tells me they were "normal". He does suffer from erectile dysfunction after his brachytherapy. PTSD with anxiety and depression - cont home meds Greater than 30 minutes spent on d/c home with self care Discharge Information Condition at Discharge: Improved Follow Up: Weeks Disposition/Orders: D/C to Home Scheduled Allopurinol (Allopurinol) 300 Mg Tablet, 1 TAB PO DAILY for , #30 Ref 5 (Reported) Entered as Reported by: Erica English on 09/30/202051 Last Taken: Unknown Dose on 04/05/21 Last Action: Continued on 04/06/211830 by RYAN HAMMER MD Atorvastatin Calcium (Lipitor) 80 Mg Tablet, 80 MG PO HS for FOR CHOLESTEROL, #30 Ref 0 (Reported) Entered as Reported by: Erica English on 09/30/202051 Last Taken: Unknown Dose on 04/05/21 Last Action: Converted on 04/06/211830 by RYAN HAMMER MD Buspirone Hcl (Buspirone Hcl) 10 Mg Tablet, 1 TAB PO BID for , #60 Ref 1 (Reported) Entered as Reported by: Erica English on 09/30/202051 Last Taken: Unknown Dose on 04/05/21 Last Action: Continued on 04/06/211830 by RYAN HAMMER MD Clindamycin Hcl (Clindamycin Hcl) 300 Mg Capsule, 1 CAP PO TID for Oral infection for 7 Days, #21 Prescribed by: RYAN HAMMER MD on 04/08/21 0833 Cyanocobalamin (Vitamin B-12) (B-12) 1,000 Mcg Tablet.er, 1 TAB PO DAILY for for 30 Days, #30 Ref 0 (Reported) Entered as Reported by: Erica English on 09/30/202051 Last Taken: Unknown Dose on 04/05/21 Last Action: Last Taken Edited on 04/06/21 1217 by KASEY PATEL Duloxetine Hcl (Cymbalta) 60 Mg Capsule.dr, 1 CAP PO BID for , #90 Ref 3 (Reported) Entered as Reported by: Erica English on 09/30/202051 Last Taken: Unknown Dose on 04/05/21 Last Action: Converted on 04/06/211830 by RYAN HAMMER MD Ergocalciferol (Vitamin D2) (Vitamin D2) 1,250 Mcg Capsule, 1,250 MCG PO QM for , (Reported) Entered as Reported by: Erica English on 09/30/202051 Last Taken: Unknown Dose on 04/05/21 Last Action: Continued on 04/06/211830 by RYAN HAMMER MD Ferrous Sulfate (Ferrous Sulfate) 325 Mg Tablet, 1 TAB PO DAILY for , #30 Ref 3 (Reported) Entered as Reported by: Erica English on 09/30/202051 Last Action: Continued on 04/06/211830 by RYAN HAMMER MD Gabapentin (Gabapentin ) 400 Mg Capsule, 400 MG PO HS for NEUROGENIC PAIN, (Reported) Entered as Reported by: Erica English on 09/30/202051 Last Taken: Unknown Dose on 04/05/21 Last Action: Continued on 04/06/211830 by RYAN HAMMER MD Gabapentin (Gabapentin ) 100 Mg Capsule, 200 MG PO DAILY for NEUROGENIC PAIN, (Reported) Entered as Reported by: Erica English on 09/30/202051 Last Taken: Unknown Dose on 04/05/21 Last Action: Continued on 04/06/211830 by RYAN HAMMER MD Metoprolol Tartrate (Metoprolol Tartrate) 25 Mg Tablet, 25 MG PO BID for HEART for 30 Days, #60 Prescribed by: RL ROY MD on 10/02/20 1113 Last Taken: Unknown Dose on 04/06/21499 Last Action: Continued on 04/06/211830 by RYAN HAMMER MD [place]-3 Fatty Acids/Fish Oil (Fish Oil 1,000 Mg Softgel) 1 Each Capsule, 2 CAP PO TID for for 30 Days, #180 Ref 0 (Reported) WITH MEALS Entered as Reported by: Erica English on 09/30/202051 Last Taken: Unknown Dose on 04/05/21 Last Action: Last Taken Edited on 04/06/211216 by KASEY PATEL Omeprazole (Omeprazole) 20 Mg Capsule.dr, 1 CAP PO DAILY for , #30 Ref 5 (Reported) Entered as Reported by: Erica English on 09/30/202051 Last Taken: Unknown Dose on 04/06/210 Last Action: Converted on 04/06/211830 by RYAN HAMMER MD Oxybutynin Chloride (Oxybutynin Chloride Er) 15 Mg Tab.er.24, 1 TAB PO HS for , #90 Ref 1 (Reported) Entered as Reported by: Erica English on 09/30/202051 Last Taken: Unknown Dose on 04/05/21 Last Action: Last Taken Edited on 04/06/211216 by KASEY PATEL Prazosin Hcl (Prazosin Hcl) 5 Mg Capsule, 2 CAP PO QHS for , #30 Ref 1 (Reported) Entered as Reported by: Erica English on 09/30/202051 Last Taken: Unknown Dose on 04/05/21 Last Action: Converted on 04/06/211830 by RYAN HAMMER MD Ropinirole Hcl (Ropinirole Hcl) 3 Mg Tablet, 3 MG PO HS for , (Reported) Entered as Reported by: Erica Englsih on 09/30/202051 Last Taken: Unknown Dose on 04/05/21 Last Action: Converted on 04/06/211830 by RYAN HAMMER MD Vit A,C & E/Lutein/Minerals (I-Candice Tablet) 1 Each Tablet, 1 EACH PO BID for , (Reported) Entered as Reported by: Tomasa Lehman on 10/01/20 0945 Last Taken: Unknown Dose on 04/05/21 Last Action: Continued on 04/06/211830 by RYAN HAMMER MD Scheduled PRN Acetaminophen (Acetaminophen) 500 Mg Tablet, 2 TAB PO PRN Q6HRS PRN for pain or fever for 15 Days, #60 Ref 0 (Reported) Entered as Reported by: Erica English on 09/30/202050 Last Action: Continued on 04/06/211830 by RYAN HAMMRE MD Docusate Sodium (Dok) 100 Mg Capsule, 100 MG PO PRN DAILY PRN for HARD STOOLS for 30 Days, #60 Prescribed by: RL ROY MD on 10/02/20 1043 Last Taken: Unknown Dose on 04/05/21 Last Action: Continued on 04/06/211830 by RYAN HAMMER MD Nitroglycerin (Nitrostat) 0.4 Mg Tab.subl, 0.4 MG SL PRN Q5MIN PRN for CHEST PAIN for 30 Days, #100 Prescribed by: RL ROY MD on 10/02/20 1043 Last Action: Continued on 04/06/211830 by RYAN HAMMER MD Oxycodone/Apap 5-325 (Percocet 5-325 Mg Tablet ) 1 Each Tablet, 1-2 TAB PO PRN Q6HRS PRN for PAIN MODERATE/SEVERE for 3 Days, #18 Prescribed by: RYAN HAMMER MD on 04/08/21 0833 Discontinued Medications Cephalexin (Cephalexin) 500 Mg Tablet, 2 TAB PO BID for 7 Days, #28 Prescribed by: MINESH GARZON DO on 11/11/20 0203 Last Taken: Unknown Dose on 04/06/21 0500 Last Action: Last Taken Edited on 04/06/21 1217 by KASEY PATEL Justicifation of Admission Dx: Justifications for Admission: Justification of Admission Dx: Yes RYAN HAMMER MD Apr 08, 2021 08:38
--- NOTE | 2021-04-09 17:09 | PATHOLOGY ---
[facility] Accession Number: [id number] . 01 Material submitted: . PART A: sublingual gland - RIGHT SUBLINGUAL SALIVARY GLAND. Modifiers: right PART B: sublingual gland - SUBLINGUAL SALIVARY GLAND LEFT. Modifiers: left . 01 Clinical history: . SIALOLITHIASIS . 02 Diagnosis: A. 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 . B. 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 . 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 02 Comment: There is no evidence of malignancy. 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 02 Electronically signed: . Gurmeet Bustos MD, Pathologist NPI- [id number] . 01 Gross description: . A. Received in formalin labeled "Don Michel, sublingual salivary gland right" is a fragment of yellow-vale lobulated fibroadipose tissue measuring 4.6 x 1.7 x 0.5 cm. The external surface is inked black. The specimen is serially sectioned and submitted entirely in cassettes A1-A2. . B. Received in formalin labeled "Don Michel, sublingual salivary gland left" is a fragment of yellow-vale lobulated fibroadipose tissue measuring 2.7 x 1.6 x 0.6 cm. The external surface is inked black. The specimen is serially sectioned and submitted entirely in cassettes B1-B2. [place] [place]08[place] SY[facility]/SYC 04/08/2021 1215 Local . 02 Pathologist provided ICD-10: K11.23, K11.0 . 02 CPT . 463214, 291140 Specimen Comment: A courtesy copy of this report has been sent to [phone] Specimen Comment: Report sent to Specimen Comment: A duplicate report has been generated due to demographic updates. Performed at: 01 [facility] [address] [id number] MD Earl Bowen MD Phone: [phone] Performed at: 02 [facility] [address] [place], [place] [id number] MD Gurmeet Bustos MD Phone: [phone]
[2021-04-12] MEDS ORDERED: ERGOCALCIFEROL (VITAMIN D2) 50,000 UNIT CAPSULE. PO SCH (09:00)
== END 2021-04-08 09:06 | disposition home or self-care (01) | DRG 139 ==
LOC: SURG 11:26 → 5 NORTH 17:40
PROVIDERS: ADMIT Internal Medicine; ATTEND Dentist Oral and Maxillofacial Surgery
PROC: 0CB Mouth and Throat, Excision (ICD-10-PCS; 2021-04-06)
PROC: 0CB Mouth and Throat, Excision (ICD-10-PCS; principal; 2021-04-06 13:00)
DX: K11.20 Sialoadenitis, unspecified (principal); E44.0 Moderate protein-calorie malnutrition; I47.1 Supraventricular tachycardia; E66.9 Obesity, unspecified; E78.00 Pure hypercholesterolemia, unspecified; E78.5 Hyperlipidemia, unspecified; F32.A Depression, unspecified; F43.10 Post-traumatic stress disorder, unspecified; G47.33 Obstructive sleep apnea (adult) (pediatric); I10 Essential (primary) hypertension; I25.10 Atherosclerotic heart disease of native coronary artery without angina pectoris; J44.9 Chronic obstructive pulmonary disease, unspecified; N52.9 Male erectile dysfunction, unspecified; R09.02 Hypoxemia; Z82.49 Family history of ischemic heart disease and other diseases of the circulatory system; Z85.46 Personal history of malignant neoplasm of prostate; Z91.19 Patient's noncompliance with other medical treatment and regimen; Z95.0 Presence of cardiac pacemaker; Z96.659 Presence of unspecified artificial knee joint; K21.9 Gastro-esophageal reflux disease without esophagitis; M10.9 Gout, unspecified; M19.90 Unspecified osteoarthritis, unspecified site; Z68.36 Body mass index [BMI] 36.0-36.9, adult; Z88.0 Allergy status to penicillin; Z88.8 Allergy status to other drugs, medicaments and biological substances
CPT/HCPCS: 36415; 71045; 80053; 85007; 85025; 85610; 88307; A4209; A4930; J1100; J1885; J2270; J2370; J2704; J2710; J3010; J3490; J7030; G0378

== ENCOUNTER 2021-06-01 08:02 | Emergency (ER) | payer MEDICARE, OTHER ==
[~2021-06-01] VITALS: Ht 182.9 cm; Wt 112.3 kg
[~2021-06-01 08:02] MED LIST changes: +CLIN-94 PO; -CLINDAMYCIN 900MG PREMIX 50 ML IV PRN; -HYDROmorphone 2 MG/ML VIAL IVP PRN; +OXYC1TAB15 PO; -PROCHLORPERAZINE 10 MG/2 ML VIAL. IVP PRN; -fentaNYL PF VIAL 100 MCG/2 ML VIAL IVP PRN
--- NOTE | 2021-06-01 08:06 | PHYS DOC ---
Past Medical History Past Medical History: A-Fib, Anxiety, Depression, GERD, High Cholesterol, Hypertension Additional Past Medical Histor: PTSD, ENLARGED PROSTATE,X 2 HEAD BLEEDS,GOUT Past Surgical History: Cholecystectomy, Knee Replacement, Pacemaker, Other Additional Past Surgical Histo: AICD Smoking Status: Former Smoker Alcohol Use: Occasionally Drug Use: None General Adult EDM: Chief Complaint: DIZZY/LIGHT HEADED HPI: HPI: Patient is a 71 year old male who presents with dizziness/lightheadedness. He reports he has felt symptomatic with dizziness for the past few days. He reports mostly feeling the symptoms with standing. He denies headache. He denies chest pain, palpitations, dyspnea. No pain, nausea, vomiting, diarrhea. He reports eating and drinking well. He is currently on IV Rocephin via PICC line, for odontogenic infection of his jaw, reportedly has osteomyelitis. He is seen infectious disease. He does have a history of recurrent aspiration issues, for which she has been referred to speech pathology, he is scheduled to have a swallow study, but he has not done this yet secondary to having this infection. He denies fevers or chills. He denies coughing. No history of apnea or cyanosis, no history of syncope. He does have a history of hypertension, though he has not been taking his blood pressure medicines for the past few days, because he has noticed low blood pressure readings. EMS noted systolic blood pressure in the 90s on arrival, he is in the 110s currently here. Review of Systems: Review of Systems: Constitutional: Denies fever or chills. [] Eyes: Denies change in visual acuity. [] HENT: Denies nasal congestion or sore throat. Left-sided jaw swelling and odontogenic infection/osteomyelitis of the left mandible, chronic, unchanged. Respiratory: He does occasionally gag, aspirate, denies persistent cough, no hemoptysis. Denies dyspnea. Cardiovascular: Denies chest pain or edema. [] GI: Denies abdominal pain, nausea, vomiting, bloody stools or diarrhea. [] : Denies dysuria. [] Musculoskeletal: Denies back pain or joint pain. [] Integument: Denies rash. [] Neurologic: Denies headache, focal weakness or sensory changes. Reports dizziness. Denies vertigo. Denies syncope] Psychiatric: Denies depression or anxiety. [] Heart Score: C/O Chest Pain: No Risk Factors: Risk Factors: DM, Current or recent (<one month) smoker, HTN, HLP, family history of CAD, obesity. Risk Scores: Score 0 - 3: 2.5% MACE over next 6 weeks - Discharge Home Score 4 - 6: 20.3% MACE over next 6 weeks - Admit for Clinical Observation Score 7 - 10: 72.7% MACE over next 6 weeks - Early Invasive Strategies Allergies: Allergies: Allergies Coded Allergies Type Severity Reaction Last Updated Verified Penicillins Allergy Intermediate RASH 04/06/21 Yes hydromorphone Adverse Reaction Intermediate hallucinations 04/08/21 Yes tramadol Adverse Reaction Intermediate 04/07/21 Yes Physical Exam: PE: Constitutional: Well developed, well nourished, no acute distress, non-toxic appearance. [] HENT: Normocephalic, atraumatic, mucous membranes are moist. There is some mild to moderate soft tissue swelling of his left mandible/submandibular area. Mild tenderness. No trismus, no drooling, speaks in full and clear sentences. Eyes: PERRL, EOMI, conjunctiva normal, no discharge. [] Neck: Normal range of motion, no tenderness, supple, no stridor. Trachea is midline, no JVD, no meningismus. Cardiovascular:Heart rate regular rhythm, well-perfused appearing, +2 radial pulses bilaterally Lungs & Thorax: Bilateral breath sounds clear to auscultation [] Abdomen: Bowel sounds normal, soft, no tenderness, no masses, no pulsatile masses. [] Skin: Warm, dry, no erythema, no rash. [] Back: No tenderness, no CVA tenderness. [] Extremities: No tenderness, no cyanosis, no clubbing, ROM intact, no edema. [] Neurologic: Alert and oriented X 3, normal motor function, normal sensory function, no focal deficits noted. 5 out of 5 motor strength all 4 extremities. Cranial nerves II through XII grossly intact. Station is grossly intact. Gait is steady. Speech is fluent. Psychologic: Affect normal, judgement normal, mood normal. [] EKG: EKG: EKG is interpreted at 0815 Rhythm is sinus Rate is 86 bpm Mcnary is left No STEMI Radiology/Procedures: Radiology/Procedures: IMAGING REPORT Signed PATIENT: FREDA GONZALEZ ACCOUNT: [id number] : 1950 LOCATION: ER AGE: 71 SEX: M EXAM STATUS: PRE ER ORD. PHYSICIAN: SHWETHA SHANKAR DO REASON: dizziness PROCEDURE: CT HEAD WO CONTRAST CT HEAD/BRAIN WO History: Reason: dizziness / Spl. Instructions: / History: Comparison: October 07, 2020 Technique: Noncontrast CT imaging was performed of the head. Exposure: One or more of the following individualized dose reduction techniques were utilized for this examination: 1. Automated exposure control 2. Adjustment of the mA and/or kV according to patient size 3. Use of iterative reconstruction technique. Findings: No intracranial hemorrhage. No mass effect. No hydrocephalus. Mild brain parenchymal volume loss. Mild foci of decreased attenuation within hemispheric white matter, most often due to chronic microvascular ischemia, unchanged. Partially empty sella, often incidental, unchanged. Imaged orbits are unremarkable. Mild scattered paranasal sinus because of thickening. Mastoid air cells are clear. No acute calvarial fracture. Stable postoperative changes bilateral temporal regions. Impression: 1. No acute intracranial abnormality. Electronically signed by: Rufino Urbano DO (06/01/2021 9:46 AM) [id number] DICTATED and SIGNED BY: RUFINO URBANO DO DATE: 06/01/21 [id number] IMAGING REPORT Signed PATIENT: FREDA GONZALEZ ACCOUNT: [id number] : 1950 LOCATION: ER AGE: 71 SEX: M EXAM STATUS: PRE ER ORD. PHYSICIAN: SHWETHA SHANKAR DO REASON: dizziness PROCEDURE: PORTABLE CHEST 1V XR CHEST 1V History: Reason: dizziness / Spl. Instructions: / History: Comparison: April 06, 2021 Findings: Multifocal ill-defined opacities bilaterally most prominent within the right upper lung. No pleural effusion. No pneumothorax. Unchanged heart size. Stable left-sided pacemaker. Right PICC with tip projecting over the cavoatrial junction. No pneumothorax. Impression: 1. Multifocal ill-defined opacities greatest within the right upper lung, concerning for pneumonia. Recommend follow-up to ensure resolution. Electronically signed by: Rufino Urbano DO (06/01/2021 8:52 AM) [id number] DICTATED and SIGNED BY: RUFINO URBANO DO DATE: 06/01/21 [id number] 0 Course & Med Decision Making: Course & Med Decision Making Pertinent Labs and Imaging studies reviewed. (See chart for details) I have discussed the findings, differential diagnosis and plan of care with the patient. IV clindamycin is given for aspiration pneumonia/pneumonitis. Odontogenic infection is likely the etiology for his infection. He manifests no evidence of hypoxia or respiratory distress. He very much wishes to go home. He is already on Rocephin. He may continue this. He is comfortable with oral clindamycin for discharge home. I told him to contact his primary care physician this week to arrange for close follow-up. I recommend he pursue the swallow study and speech pathology evaluation PJ. He is given a liter of IV fluids, he feels much better. Blood pressure has been stable. I recommend he hold his blood pressure medications for now, continue to monitor his blood pressure at home. Strict return precautions are given. He verbalizes understanding. He and his are comfortable with the plan of care. Maricel Disclaimer: Maricel Disclaimer: This electronic medical record was generated, in whole or in part, using a voice recognition dictation system. Departure Departure Impression: Primary Impression: Dizziness Additional Impressions: Aspiration pneumonia Odontogenic infection of jaw Disposition: 01 HOME / SELF CARE / HOMELESS Condition: STABLE Referrals: YISSEL CHAKRABORTY MACHINE REPAIR PERSON-C (PCP) Patient Instructions: Aspiration Pneumonia, Dehydration, Adult, Dizziness Additional Instructions: Take the full course of antibiotics. Return to the ER immediately for chest pain, shortness of breath, uncontrolled vomiting, focal weakness, if you have any acute fall or injury, or for any other concerns. Please contact your primary care physician for follow-up. Please follow-up for your swallow study to help with your aspiration symptoms. Scripts Clindamycin Hcl (CLINDAMYCIN HCL) 300 Mg Capsule 300 MG PO QID for 10 Days, #40 CAP Prov: SHWETHA SHANKAR DO 06/01/21 SHWETHA SHANKAR DO Jun 01, 2021 08:06
[2021-06-01] MEDS ORDERED: IV NORMAL SALINE 1000ML BAG 1,000 ML IV ONE (08:30)
[2021-06-01 08:50] LABS: BASO % 1 % (0-3); EOS % 0 % (0-3); HEMATOCRIT 33.6 % (39.0-53.0); HEMOGLOBIN 11.3 g/dL (13.0-17.5); LYMPH # 0.6 x10^3/uL (1.0-4.8); LYMPH % 24 % (24-48); MEAN CORPUSCULAR HEMOGLOBIN 30 pg (25-35); MEAN CORPUSCULAR HGB CONC 34 g/dL (31-37); MEAN CORPUSCULAR VOLUME 89 fL (79-100); MONO # 0.3 x10^3/uL (0.0-1.1); MONO % 12 % (0-9); NEUT # 1.7 x10^3/uL (1.8-7.7); NEUT % 64 % (31-73); PLATELET COUNT 113 x10^3/uL (140-400); RED BLOOD COUNT 3.76 x10^6/uL (4.30-5.70); RED CELL DISTRIBUTION WIDTH 15.4 % (11.5-14.5); WHITE BLOOD COUNT 2.7 x10^3/uL (4.0-11.0)
--- NOTE | 2021-06-01 08:54 | RAD ---
XR CHEST 1V History: Reason: dizziness / Spl. Instructions: / History: Comparison: April 06, 2021 Findings: Multifocal ill-defined opacities bilaterally most prominent within the right upper lung. No pleural e ffusion. No pneumothorax. Unchanged heart size. Stable left-sided pacemaker. Right PICC with tip proj ecting over the cavoatrial junction. No pneumothorax. Impression: 1. Multifocal ill-defined opacities greatest within the right upper lung, concerning for pneumonia. Recommend follow-up to ensure resolution. Electronically signed by: Rufino Urbano DO (06/01/2021 8:52 AM) [id number]
[2021-06-01 09:07] LABS: ALBUMIN 3.1 g/dL (3.4-5.0); ALBUMIN/GLOBULIN RATIO 1.1 (1.0-1.7); CALCIUM 7.5 mg/dL (8.5-10.1); CREATININE 0.7 mg/dL (0.7-1.3); GFR 111.2; MAGNESIUM 1.8 mg/dL (1.8-2.4); PHOSPHORUS 3.6 mg/dL (2.6-4.7); TOTAL BILIRUBIN 0.4 mg/dL (0.2-1.0)
--- NOTE | 2021-06-01 09:49 | RAD ---
CT HEAD/BRAIN WO History: Reason: dizziness / Spl. Instructions: / History: Comparison: October 07, 2020 Technique: Noncontrast CT imaging was performed of the head. Exposure: One or more of the following individualized dose reduction techniques were utilized for thi s examination: 1. Automated exposure control 2. Adjustment of the mA and/or kV according to patient size 3. Use of iterative reconstruction technique. Findings: No intracranial hemorrhage. No mass effect. No hydrocephalus. Mild brain parenchymal volume loss. Mi ld foci of decreased attenuation within hemispheric white matter, most often due to chronic microvasc ular ischemia, unchanged. Partially empty sella, often incidental, unchanged. Imaged orbits are unremarkable. Mild scattered paranasal sinus because of thickening. Mastoid air moreno ls are clear. No acute calvarial fracture. Stable postoperative changes bilateral temporal regions. Impression: 1. No acute intracranial abnormality. Electronically signed by: Rufino Urbano DO (06/01/2021 9:46 AM) [id number]
[2021-06-01 10:19] LABS: BILIRUBIN,URINE NEGATIVE (NEG); CLARITY,URINE CLEAR; COLOR,URINE YELLOW; NITRITE,URINE NEGATIVE (NEG); PROTEIN,URINE NEGATIVE (NEG-TRACE); UROBILINOGEN,URINE 0.2 mg/dL (0.2 mg/dL)
[2021-06-01 10:36] LABS: BACTERIA,URINE 0 /HPF (0-FEW); HYALINE CASTS, URINE FEW /HPF; RBC,URINE 0 /HPF (0-2)
[2021-06-01] MEDS ORDERED: POTASSIUM CHLORIDE 20 MEQ TABLET.ER. PO ONE (10:45)
[2021-06-01] MEDS ORDERED: CLINDAMYCIN 900MG PREMIX 50 ML IV ONE (10:45)
[2021-06-01 11:49] VITALS: BP 129/82
[2021-06-01] MEDS ORDERED: CLIN-94 PO (12:27)
--- NOTE | 2021-06-01 23:03 | EKG ---
[facility] [address] [place] [address] Test Date: 2021-06-01 Test Time: 08:14:08 Pat Name: FREDA OGNZALEZ Department: Room: Gender: Administrative Coordinator: : 1950 Requested By: SHWETHA SHANKAR Order Number: [id number] Reading MD: Nolberto Lao Measurements Intervals [place] Rate: 86 P: -28 NM: 156 QRS: -18 QRSD: 98 T: 59 QT: 368 QTc: 443 Interpretive Statements SINUS RHYTHM ATRIAL PREMATURE COMPLEX(ES) LEFTWARD AXIS T ABNORMALITY IN HIGH LATERAL LEADS ABNORMAL ECG Electronically Signed On 06-03-2021 12:51:58 FLORIST DESIGNER by Nolberto Lao
== END 2021-06-01 12:30 | disposition home or self-care (01) ==
LOC: ER 08:02
DX: J18.9 Pneumonia, unspecified organism (principal); R42 Dizziness and giddiness; I48.91 Unspecified atrial fibrillation; K21.9 Gastro-esophageal reflux disease without esophagitis; E78.00 Pure hypercholesterolemia, unspecified; I10 Essential (primary) hypertension; F43.10 Post-traumatic stress disorder, unspecified; M10.9 Gout, unspecified; Z87.891 Personal history of nicotine dependence; Z95.0 Presence of cardiac pacemaker; Z88.0 Allergy status to penicillin; Z88.5 Allergy status to narcotic agent; Z88.6 Allergy status to analgesic agent
CPT/HCPCS: 36415; 70450; 71045; 80053; 81001; 82550; 83735; 84100; 84484; 85025; 93005; 96361; 96365; 99285; J3490; J7030